=== PATIENT | male | born 1940 | race Caucasian/White ===

== ENCOUNTER → 2016-06-17 | Outpatient (CLI) | payer OTHER ==
[~2016-06-17] MED LIST: ACCUPRIL PO; ADULT LOW DOSE81 MG PO; AMBIEN 5 MG TABL5 M1 PO; AMLODIPINE BESY10 MG; AMLODIPINE BESYL5 MG PO; ANSAID100 MG PO; ASPIR 8181 MG PO; ASPIRIN325; ASPIRIN325 PO; B COMPLEX-VITA1 EACH PO; B-50 COMPLEX1 EAC1 PO; BYSTOLIC 5 MG5 M1 PO; BYSTOLIC10 MG PO; CALCIUM 500 +1 EAC6 PO; CALCIUM PO; CARDURA2 MG PO; FAMOTIDINE20 MG PO; FISH OIL 1,001000 M1 PO; FISH OIL 1,001000 M2 PO; FISHOIL PO; HYDROCODONE-AP1 EAC6 PO; HYZAAR 100-12.1 EACH PO; HYZAAR 50-12.51 EACH PO; HYZAAR 50-12.51 TAB PO; IRON325 PO; LIPITOR40 MG PO; LOSARTAN-HCTZ1 EAC2; MAGNESIUM OXID400 MG PO; MIRALAX17 G1 PO; MULTI-VITAMIN1 EAC5 PO; MULTIVITAMINS PO; NEXIUM40 MG PO; NITROGLYCERIN0.4 MG SUBLING; NORCO 10-325 T1 EACH PO; OMEPRAZOLE 20 M20 M1 PO; OMEPRAZOLE PO; PLAVIX 75 MG TA75 MG PO; STOOL SOFTENER100 M1 PO; TRIBENZOR 20-51 EACH; VIAGRA100 MG PO; VITCB500GO PO
== END ==
LOC: NUC 09:44
DX: I77.9 Disorder of arteries and arterioles, unspecified (principal); R55 Syncope and collapse; R07.89 Other chest pain

== ENCOUNTER 2017-01-05 08:41 | Observation (INO) | payer OTHER ==
[~2017-01-05] VITALS: Ht 175.3 cm; Wt 100.4 kg
--- NOTE | ~2017-01-05 | P ---
[facility] [place] [address] PROCEDURE REPORT Name: EYALDEMOND Angela Room #: 213-P [facility] Katherine Dias#: [id number] Admission: 01/05/17 Attend Phys: Brody Alonso MD Discharge: 01/06/17 Date of : 38 Report #: [id number] THIS REPORT FOR: //name// CC: Royal Alonso DATE OF SERVICE: 01/06/2017 EP study and pacemaker implantation. PREOPERATIVE DIAGNOSES: 1. Recurrent syncope. 2. Conduction disease on EKG. HISTORY OF PRESENT ILLNESS: The patient is a 76-year-old with a known history of coronary artery disease who has had recurrent syncopal episodes and is here for EP study with possible ICD, possible pacemaker, and possible loop recorder insertion. ANESTHESIA: The patient underwent MAC anesthesia with no anesthesia related complications. PROCEDURE: The patient underwent informed consent. We discussed the details of the procedure including the risks, which include, but not limited to bleeding, infection, vascular damage, cardiac perforation, and pneumothorax. He understood these risks and is willing to proceed. As such, he was brought to the EP laboratory in a fasting and sedated state and prepped and draped in a sterile fashion. Next, I injected lidocaine to the right femoral groin region, obtained access to the right femoral vein times 3, placing three 6-Burundian short sheaths using the modified Seldinger technique. Next, under fluoroscopy, I placed 3 quadripolar catheters at the [facility], HIS, and RV positions. A basic EP study was performed. At baseline, the patient was in sinus rhythm with a sinus cycle length of 850 milliseconds, WA interval 320 milliseconds, QRS duration 147 milliseconds with an intraventricular conduction delay and AH interval 250 milliseconds, and HV interval of 70 milliseconds. Next, atrial burst pacing was performed and AV block was noted at 800 milliseconds. When I would pace at below 600 milliseconds, there was evidence of complete heart block. Next, ventricular stimulation was performed with ventricular ERP noted at 380 milliseconds at [address] cycle length and ventricular ERP noted at 410 milliseconds at a [address] cycle length[address] Double ventricular extrastimuli were performed at several basic drive cycle lengths and there was no induction of VT or VF. As such, the patient was diagnosed with severe infra-Hisian conduction disease and was prepped for pacemaker implantation. [facility] [address] [place] [address] PROCEDURE REPORT Name: DEMOND BIRCH Room #: 213-P RAN Dias#: [id number] Admission: 01/05/17 Attend Phys: Brody Alonso MD Discharge: 01/06/17 Date of : 38 Report #: [id number] The patient received IV antibiotics prior to initiation of the procedure and was prepped and draped in a sterile fashion, I then performed a venography showing patency of the left axillary vein. Next, an incision was made and a pocket was created over the prepectoral fascia and access was obtained twice the left axillary vein using the extrathoracic approach with sheaths positioned using the modified Seldinger technique. Leads were positioned in the right ventricular apex and a lead was positioned to the right atrium. Of note, there was evidence of atrial disease and I had difficulty finding a good atrial sensing and atrial pacing threshold. I did have to put the lead in the more lateral position in order to attain decent numbers. Then, the leads were sutured to the prepectoral fascia using Ethibond suture, the pacemaker was connected, placed in the pocket, then the pocket was irrigated with vancomycin and then the pocket was closed in 3 layers and surgical glue was placed to the outer skin layer. There was no significant bleeding and there were no complications. The pacing wires had been removed prior to initiation of the pacemaker implant. The right femoral groin sheaths were then pulled and hemostasis was obtained, the patient awoke neurologically and hemodynamically intact. The implanted pacemaker was a [employer] model #[id number], serial #[id number]; the atrial lead was a [employer] model #2088TC, 52 cm, serial #[id number] with a P-wave of 1 millivolt, pacing impedance of 360 ohms and a pacing threshold 1 volt at 0.4 milliseconds; the RV lead was a [employer] model #2088TC, 58 cm, serial #[id number] with an R-wave of 6.1 millivolts, pacing impedance of 480 ohms, and the pacing threshold 0.5 volts at 0.4 milliseconds. The device was programmed to the DDDR 60-130 mode. CONCLUSIONS: 1. EP study with evidence of severe infra-Hisian disease. 2. Successful dual-chamber pacemaker implantation. 3. Satisfactory atrial and ventricular pacing and sensing thresholds. <ELECTRONICALLY SIGNED> By: Brody Alonso MD 01/17/17 1252 1024 [id number] Brody Alonso MD /nt
--- NOTE | ~2017-01-05 | CATHLAB ---
[facility] [address] [place] [address] INVASIVE PROCEDURE REPORT Name: DEMOND BIRCH Room #: 213-P [facility] IN M.R.#: [id number] Admission: 01/05/17 Attend Phys: Brody Alonso Discharge: 01/06/17 Date of : 38 Date of Service: Report #: [id number] THIS REPORT FOR: //name// By: Akshat: T: /INF
--- NOTE | ~2017-01-05 | D ---
[facility] [place] [address] DISCHARGE SUMMARY Name: EYALDEMOND Angela Room #: 213-P [facility] Katherine Dias#: [id number] Admission: 01/05/17 Attend Phys: Brody Alonso MD Discharge: 01/06/17 Date of : 38 Report #: [id number] THIS REPORT FOR: //name// CC: Royal Alonso DATE OF SERVICE: 01/06/2017 DISCHARGE DIAGNOSES: 1. Recurrent syncope. 2. Complete heart block. PROCEDURES PERFORMED: Pacemaker implantation. HISTORY OF PRESENT ILLNESS: The patient is a 76-year-old with a history of coronary artery disease who has recently had multiple recurrent syncopal episodes. His EF is 50-55%. He wore a recent cardiac surgeon, which showed a long first-degree AV block and some Mobitz I second degree heart block. He is here for EP study. On EP study, he was found to have infra-hisian conduction disease. As such, a [employer]ke[employer] dual-chamber pacemaker was implanted. The pacemaker implantation was uneventful other than for some atrial disease that made finding a good pacing threshold challenging. Eventually, I was able to place the atrial lead in a lateral position with adequate atrial signals and pacing thresholds. HOSPITAL COURSE: The patient was monitored overnight and did well without any complications. On telemetry, he was ventricularly paced. Device interrogation was performed and showed improvement in his atrial pacing threshold. Chest x-ray demonstrated normal device positioning with no pneumothorax. The patient was doing well without any complaints of chest pain, shortness of breath, fevers, or chills. His vitals were stable. His physical exam revealed normal heart with regular rate and rhythm. No murmurs, rubs, or gallops. No elevated jugular venous pressure. His lungs were clear bilaterally. His abdomen was soft, nontender, nondistended and his incision site was healing nicely with no signs of hematoma or bruising. As such, the patient was deemed stable for discharge home. Discharge instructions were reviewed and the patient will follow up in 7-10 days for a site check. Discharge medications include atorvastatin, resumption of his Bystolic, which had previously been stopped due to syncope, doxazosin, aspirin, docusate, hydrocodone, losartan/HCTZ, nitroglycerin, fish oil, Viagra, iron, and MiraLax. We also discussed that he [address] [address] DISCHARGE SUMMARY Name: EYALDEMOND Miller Room #: 213-P [facility] Katherine Dias#: [id number] Admission: 01/05/17 Attend Phys: Brody Alonso MD Discharge: 01/06/17 Date of : 38 Report #: [id number] will discontinue anticoagulation, as per my evaluation, there was no evidence of atrial fibrillation on his recent cardiac surgeon. <ELECTRONICALLY SIGNED> By: Brody Alonso MD 01/14/17 1046 1135 1300 Brody Alonso MD /jimena
[2017-01-05] MEDS ORDERED: XARELTO20 MG PO (09:00)
[2017-01-05 15:25] VITALS: BP 136/93
[2017-01-05 17:15] VITALS: BP 133/67
[2017-01-05 17:30] VITALS: BP 135/82
[2017-01-05 17:56] VITALS: BP 109/75
[2017-01-05 19:52] VITALS: BP 100/66
[2017-01-05 23:30] VITALS: BP 110/71
[2017-01-06 03:47] VITALS: BP 114/69
[2017-01-06 07:17] VITALS: BP 131/72
[2017-01-06 11:25] VITALS: BP 110/56
[2017-01-06 11:34] VITALS: BP 110/56
[2017-01-06 11:36] VITALS: BP 110/56
== END 2017-01-06 13:55 | disposition home or self-care (01) ==
LOC: CATH 08:41 → 2N 15:37
DX: I44.2 Atrioventricular block, complete (principal); I25.10 Atherosclerotic heart disease of native coronary artery without angina pectoris
CPT/HCPCS: 62110

== ENCOUNTER → 2017-01-31 | Outpatient (CLI) | payer OTHER ==
[~2017-01-31] MED LIST changes: +XARELTO20 MG PO
--- NOTE | ~2017-01-31 | 2DMMODE ---
[facility] [place] [address] 2 D/M-MODE ECHOCARDIOGRAM Name: DEMOND BIRCH [id number] Admission: 01/31/17 Attend Phys: Royal Santos, Discharge: Date of : 38 Date of Service: 01/31/17 1003 Report #: [id number] THIS REPORT FOR: //name// APPROVED REPORT Study performed: 01/31/2017 09:12:03 EXAM: Comprehensive 2D, Doppler, and color-flow Echocardiogram Patient Location: Echo lab Status: routine BSA: 2.07 BP: 140/90 mmHg Other Information Study Quality: Adequate Indications Pacemaker CAD Syncope 2D Dimensions RVDd: 45.42 mm LVEF(%): 48.50 (>50%) IVSd: 13.61 (7-11mm) LVOT Diam: 25.42 (18-24mm) LVDd: 47.38 mm PWd: 13.15 (7-11mm) Ascending Ao: 30.20 (22-36mm) LVDs: 35.80 (25-40mm) Aortic Root: 35.72 mm IVC: 19.00 mm Martini's LVEF: 48.50 % Volumes Left Atrial Volume (Systole) Single Plane 4CH: 85.80 mL Single Plane 2CH: 87.77 mL LA ESV Index: 48.00 mL/m2 Aortic Valve AoV Peak Jordan.: 1.60 m/s AO Peak Gr.: 10.28 mmHg LVOT Max P.19 mmHg LVOT Max V: 1.02 m/s TALI Vmax: 3.24 cm2 Mitral Valve E/A Ratio: 1.1 [facility] [place] [address] 2 D/M-MODE ECHOCARDIOGRAM Name: DEMOND BIRCH Room #: [facility]#: [id number] Admission: 01/31/17 Attend Phys: Royal Santos, Discharge: Date of : 38 Date of Service: 01/31/17 1003 Report #: [id number] MV Decel. Time: 179.05 ms MV E Max Jordan.: 0.67 m/s MV A Jordan.: 0.61 m/s MV PHT: 51.92 ms Pulmonary Valve PV Peak Jordan.: 1.27 m/s PV Peak Gr.: 6.44 mmHg Pulmonary Vein P Vein S: 0.71 m/s P Vein A: 0.21 m/s P Vein D: 0.48 m/s P Vein A Dur.: 173.0 msec P Vein S/D Ratio: 1.48 Tricuspid Valve TR Peak Jordan.: 2.98 m/s RAP Estimate: 5.00 mmHg TR Peak Gr.: 35.42 mmHg PA Pressure: 40.00 mmHg Left Ventricle The left ventricle is normal size. Mild to moderate concentric left ventricular hypertrophy. Left ventricular systolic function is mild to moderately decreased. Discordant distal septal and inferior wall motion probably from RV pacing. LVEF is 40%. Right Ventricle The right ventricle is normal size. Right ventricular systolic function appears grossly normal. Atria Left atrium is dilated. Right atrium is dilated. Aortic Valve The aortic valve is midly sclerotic, trileaflet No aortic regurgitation is present. There is no aortic valvular stenosis. Mitral Valve The mitral valve is normal in structure. Mild mitral regurgitation. No evidence of mitral valve stenosis. Tricuspid Valve The tricuspid valve is normal in structure. Moderate tricuspid regurgitation. PAP is estimated at 40 mmHg. Pulmonic Valve The pulmonary valve is normal in structure. Trace pulmonic [facility] [address] [place] [address] 2 D/M-MODE ECHOCARDIOGRAM Name: DEMOND BIRCH Room #: REG Larissa#: [id number] Admission: 01/31/17 Attend Phys: Royal Santos, Discharge: Date of : 38 Date of Service: 01/31/17 1003 Report #: [id number] regurgitation. Great Vessels The aortic root is normal in size. IVC is normal in size and collapses >50% with inspiration. Pericardium There is no pericardial effusion. <Conclusion> Left ventricular systolic function is mild to moderately decreased. Discordant distal septal and inferior wall motion probably from RV pacing. LVEF is 40%. Both atria are dilated. The aortic valve is midly sclerotic, trileaflet. No aortic regurgitation or stenosis The mitral valve is normal in structure. Mild mitral regurgitation. Pulmonary artery pressure of 40mmHg There is no pericardial effusion. <ELECTRONICALLY SIGNED> By: Jimbo Smith MD, FACC 01/31/17 1003 1003 1003 Jimbo Smith MD, FACC /INF
== END ==
LOC: CV 08:30
DX: I25.10 Atherosclerotic heart disease of native coronary artery without angina pectoris (principal); I48.91 Unspecified atrial fibrillation; I10 Essential (primary) hypertension; I35.8 Other nonrheumatic aortic valve disorders; I34.0 Nonrheumatic mitral (valve) insufficiency; R55 Syncope and collapse; Z95.0 Presence of cardiac pacemaker

== ENCOUNTER → 2018-02-17 | Outpatient (CLI) | payer OTHER ==
[~2018-02-17] VITALS: Ht 175.3 cm; Wt 95.3 kg
[~2018-02-17] MED LIST changes: +LASIX 40 MG TAB40 M2 PO; +NORVASC5 M1 PO; +PROTONIX40 M1 PO; +RESTORIL30 MG PO
[2018-02-17 11:05] VITALS: BP 142/87
[2018-02-17 11:17] LABS: HEMATOCRIT 40.8 % (42.0-52.0); MCHC 34.2 g/dL (28.0-37.0); MCV 96.3 fL (80.0-100.0); RBC 4.24 mil/uL (4.50-6.00); RDW 22.4 % (10.5-14.5); WBC 4.3 thou/uL (4.0-11.0)
[2018-02-17 11:23] LABS: CALCIUM 8.8 mg/dL (8.5-10.1); CREATININE 1.6 mg/dL (0.7-1.3); POTASSIUM 3.4 mmol/L (3.5-5.1)
[2018-02-17 11:30] LABS: ALBUMIN 3.7 g/dL (3.4-5.0); APTT 38.5 Seconds (24.5-32.8); INR 1.5; PROTIME 16.1 Seconds (9.3-11.4); TOTAL BILIRUBIN 0.8 mg/dL (<0.1-1.0); TOTAL PROTEIN 7.2 g/dL (6.4-8.2)
== END | disposition home or self-care (01) ==
LOC: CATH 09:19
PROVIDERS: Internal Medicine Cardiovascular Disease
DX: I48.91 Unspecified atrial fibrillation (principal); E78.00 Pure hypercholesterolemia, unspecified; K21.9 Gastro-esophageal reflux disease without esophagitis; Z79.899 Other long term (current) drug therapy; Z79.01 Long term (current) use of anticoagulants; Z88.8 Allergy status to other drugs, medicaments and biological substances; Z90.49 Acquired absence of other specified parts of digestive tract; Z95.5 Presence of coronary angioplasty implant and graft; Z98.890 Other specified postprocedural states; Z86.73 Personal history of transient ischemic attack (TIA), and cerebral infarction without residual deficits; Z82.49 Family history of ischemic heart disease and other diseases of the circulatory system; Z96.653 Presence of artificial knee joint, bilateral; Z95.1 Presence of aortocoronary bypass graft
CPT/HCPCS: 62110; 62900

== ENCOUNTER → 2018-09-14 | Outpatient (CLI) | payer OTHER ==
--- NOTE | 2018-09-14 15:07 | 2DMMODE ---
[facility] [place] [address] 2 D/M-MODE ECHOCARDIOGRAM Name: DEMOND BIRCH Room #: REG [facility]#: [id number] ������������� Admission: 09/14/18 ������������� Attend Phys: Brody Alonso Discharge: ��� ������������� ��� Date of : 38 Date of Service: 09/14/18 1507 �� Report #: [id number] �������� ��������������������������������������������[id number] THIS REPORT FOR: //name// APPROVED REPORT Study performed: 09/14/2018 13:44:34 EXAM: Comprehensive 2D, Doppler, and color-flow Echocardiogram Patient Location: Out-Patient, Echo Lab Status: routine BSA: 2.11 HR: 80 bpm BP: 124/82 mmHg Rhythm: Atrial Fibrillation Other Information Study Quality: Good Indications Atrial Fibrillation Pacemaker CAD 2D Dimensions IVSd: 11.31 (7-11mm) LVOT Diam: 23.00 (18-24mm) LVDd: 54.84 mm PWd: 10.86 (7-11mm) Ascending Ao: 37.11 (22-36mm) LVDs: 50.27 (25-40mm) Aortic Root: 33.45 mm LV Single Plane 4CH: 24.97 % LV Single Plane 2CH: 27.22 % Biplane EF: 25.2 % Volumes Left Atrial Volume (Systole) Single Plane 4CH: 115.04 mL Single Plane 2CH: 130.27 mL LA ESV Index: 62.00 mL/m2 Aortic Valve AoV Peak Jordan.: 1.11 m/s AO Peak Gr.: 5.32 mmHg LVOT Max P.76 mmHg LVOT Max V: 0.66 m/s TALI Vmax: 2.42 cm2 [facility] [address] [place] [address] 2 D/M-MODE ECHOCARDIOGRAM Name: DEMOND BIRCH Room #: REG [facility]#: [id number] ������������� Admission: 09/14/18 ������������� Attend Phys: [facility]dy [facility] Discharge: ��� ������������� ��� Date of : 38 Date of Service: 09/14/18 1507 �� Report #: [id number] �������� ��������������������������������������������[id number] Pulmonary Valve PV Peak Jordan.: 0.89 m/s PV Peak Gr.: 3.20 mmHg UT End Vmax: 1.90 m/s Tricuspid Valve TR Peak Jordan.: 3.22 m/s RAP Estimate: 15.00 mmHg TR Peak Gr.: 41.42 mmHg PA Pressure: 56.00 mmHg Left Ventricle The left ventricle is normal size. Borderline concentric left ventricular hypertrophy. Left ventricular systolic function is severely decreased. LVEF is 25-30%. This study is not technically sufficient to allow evaluation of the LV diastolic function due to atrial fibrillation. Right Ventricle Right ventricle is borderline dilated. The right ventricular systolic function is normal. Pacemaker lead is present in the right ventricle. Atria Left atrium is severely dilated. Right atrium is severely dilated. Aortic Valve The aortic valve is normal in structure. No aortic regurgitation is present. There is no aortic valvular stenosis. Mitral Valve The mitral valve is normal in structure. Moderate to severe mitral regurgitation No evidence of mitral valve stenosis. Tricuspid Valve The tricuspid valve is normal in structure. Moderate to severe tricuspid regurgitation. Pulmonary artery pressure is 56 mmHg. Pulmonic Valve The pulmonary valve is normal in structure. Mild pulmonic regurgitation. Great Vessels The aortic root is normal in size. The ascending aorta is normal in size. IVC is dilated and collapses <50% with inspiration. [facility] [place] [address] 2 D/M-MODE ECHOCARDIOGRAM Name: DEMOND BIRCH Room #: REG [facility]#: [id number] ������������� Admission: 09/14/18 ������������� Attend Phys: Brody Alonso Discharge: ��� ������������� ��� Date of : 38 Date of Service: 09/14/18 1507 �� Report #: [id number] �������� ��������������������������������������������[id number] Pericardium There is no pericardial effusion. <Conclusion> The left ventricle is normal size. Left ventricular systolic function is severely decreased. Right ventricle is borderline dilated. Pacemaker lead is present in the right ventricle. Left atrium is severely dilated. Right atrium is severely dilated. The aortic valve is normal in structure. Moderate to severe mitral regurgitation Moderate to severe tricuspid regurgitation. Pulmonary artery pressure is 56 mmHg. ��������������������������������������������� <ELECTRONICALLY SIGNED> ���������������������������������������� By: Hansel Maguire MD ��������������������������������������������� 09/14/18 1507 D: [id number] 150 Hansel Maguire MD /JON
== END ==
LOC: CV 10:09
DX: I08.8 Other rheumatic multiple valve diseases (principal); I48.91 Unspecified atrial fibrillation; I25.10 Atherosclerotic heart disease of native coronary artery without angina pectoris; Z95.0 Presence of cardiac pacemaker; Z88.6 Allergy status to analgesic agent

== ENCOUNTER 2018-10-06 06:29 | Observation (INO) | payer OTHER ==
[~2018-10-06] VITALS: Ht 175.3 cm; Wt 96.2 kg
--- NOTE | ~2018-10-06 | P ---
[facility] [place] [address] PROCEDURE REPORT Name: EYALDEMOND Angela Room #: 206-P [facility]..#: [id number] Admission: 10/06/18 Attend Phys: Brody Alonso MD Discharge: Date of : 38 Report #: [id number] THIS REPORT FOR: //name// CC: Royal Alonso DATE OF SERVICE: 10/06/2018 PREOPERATIVE DIAGNOSES: 1. Nonischemic cardiomyopathy. 2. [place] [employer] functional class 2-3 heart failure symptoms. 3. Chronic right ventricular pacing. 4. Permanent atrial fibrillation. PROCEDURES PERFORMED: 1. Peripheral venogram. 2. Removal of pulse generator. 3. Placement of LV lead. 4. Insertion of a dual chamber ICD. HISTORY: The patient has a history of a nonischemic cardiomyopathy, likely due to chronic right ventricular pacing, who has been on optimal medical therapy and is here for upgrade to a biventricular ICD. ANESTHESIA: The patient underwent MAC anesthesia with no anesthesia related complications. DESCRIPTION OF PROCEDURE: The patient underwent informed consent. We discussed the details of the procedure including the risks, which include but not limited to bleeding, infection, vascular damage, cardiac perforation, pneumothorax. He understood these risks and is willing to proceed. The patient was brought to the EP laboratory in a fasting and sedated state and prepped and draped in a sterile fashion. He received IV antibiotics. A peripheral venogram was performed to ensure patency of the left axillary vein given prior pacemaker implantation. This showed that the vessel was patent. Next, lidocaine was injected at the prior incision site. Incision was made, the chronic pocket was opened and the pocket was enlarged for the anticipated ICD. Next, I obtained access to the left axillary vein x 2 using the extrathoracic approach with sheaths positioned using the modified Seldinger technique. Next, a lead was positioned into the right ventricular apex with adequate pacing and sensing thresholds and this lead was sutured to the prepectoral fascia. Next, a coronary sinus guide sheath was placed into the right atrium and access to the coronary sinus was obtained and a coronary sinus venogram was performed showing that there was a nice posterolateral branch. A quadripolar lead was easily [facility] [address] [place] [address] PROCEDURE REPORT Name: DEMOND BIRCH Room #: 206-P [facility].R.#: [id number] Admission: 10/06/18 Attend Phys: Brody Alonso MD Discharge: Date of : 38 Report #: [id number] delivered into this vessel and there was good pacing thresholds. There was a phrenic nerve stimulation at higher outputs, but no diaphragmatic capture at less than 4 volts. The sheath was split and the lead remained in position and this LV lead was sutured to the prepectoral fascia. Next, the chronic RV lead was capped. The preexisting atrial lead and then 2 new leads were connected to the new biventricular ICD, which was placed in the pocket. Pocket was irrigated with vancomycin and then the pocket was closed in 2 layers using 2-0 for the deep layer, 3-0 for the middle layer and surgical glue was placed to the outer skin layer. The patient awoke neurologically and hemodynamically intact. No complications and no significant bleeding. The explanted pacemaker was a [employer], model #[id number], serial #[id number]. The capped RV lead was a [employer], model #2088, 58 cm, serial #[id number]. The newly implanted device was a [employer], model #047333J, serial #[id number]. The atrial lead was a [employer], model #2088TC, 52 cm, serial #[id number], which was implanted in 2015 at the time of initial pacemaker implantation. The newly implanted ICD lead was a [employer], model #7122Q, 65 cm, serial #[id number]. The LV lead was a [employer] model #1458, 86 cm, serial #[id number]. The atrial lead demonstrates permanent atrial fibrillation. The RV lead demonstrated a R-wave of 15, threshold 0.5 volts at 0.5 milliseconds with pacing impedance of 430 ohms. The LV lead demonstrated a threshold of 1.25 volts at 0.5 milliseconds in the M3-P4 configuration with a pacing impedance of 600 ohms. The LV lead was programmed to pace 30 milliseconds prior to the RV lead and this resulted in a QRS duration of 155 milliseconds. The original QRS duration from chronic RV pacing was over 200 milliseconds. The device was programmed to the VVIR 70-130 mode. The VT zone was set at 180-220 beats per minute with 3 rounds of bursts followed by 3 rounds of ramp followed by max output shocks. The VF zone was set at greater than 222 beats per minute with ATP while charging followed by max output shocks. CONCLUSIONS: 1. Successful upgrade to a biventricular ICD. 2. Satisfactory right ventricular and left ventricular pacing and sensing thresholds. By: 1028 07 Brody Alonso MD /nt
[2018-10-06 07:07] LABS: ABSOLUTE NEUTROPHILS 4.2 thou/uL (1.4-8.2); BASOPHILS 0.7 % (0.0-2.0); EOSINOPHILS 2.1 % (0.0-3.0); HEMATOCRIT 41.2 % (42.0-52.0); HEMOGLOBIN 14.2 gm/dL (14.0-18.0); LYMPHOCYTES 9.9 % (24.0-44.0); MCH 37.3 pg (26.0-34.0); MCHC 34.5 g/dL (28.0-37.0); MONOCYTES 11.5 % (1.0-8.0); PLATELET COUNT 149 thou/uL (150-400); POLYS 75.8 % (36.0-66.0); RBC 3.82 mil/uL (4.50-6.00); RDW 16.1 % (10.5-14.5); WBC 5.5 thou/uL (4.0-11.0)
[2018-10-06 07:16] LABS: CALCIUM 9.2 mg/dL (8.5-10.1); CREATININE 1.6 mg/dL (0.7-1.3); POTASSIUM 3.4 mmol/L (3.5-5.1)
[2018-10-06 07:21] VITALS: BP 150/98
[2018-10-06 07:22] LABS: ALBUMIN 3.6 g/dL (3.4-5.0); APTT 27.8 Seconds (24.5-32.8); INR 1.3; PROTIME 13.1 Seconds (9.3-11.4); TOTAL BILIRUBIN 1.3 mg/dL (<0.1-1.0); TOTAL PROTEIN 6.9 g/dL (6.4-8.2)
[2018-10-06 07:35] LABS: ANISOCYTOSIS 1+; LARGE PLATELETS OCCASIONAL; MACROCYTES 2+; PLATELET ESTIMATE SLIGHTLY DECREASED; POLYCHROMASIA SLIGHT
[2018-10-06] MEDS ORDERED: XARELTO20 MG PO (10:09)
[2018-10-06 12:45] VITALS: BP 145/86
[2018-10-06 15:34] VITALS: BP 140/91
--- NOTE | 2018-10-06 16:29 | NUR ---
PT TO THE UNIT POST PACER AND AICD PLACMENT. PT ORINETED TO ROOM AND BEDSAPCE. INCISION TO L CHEST C/D/I. DERMABOND PRESENT - IMMOBILIZER INISITU. SARAN DIET AND FLUIDS. NO CO'S OF PAIN OR NAUSEA. PT WITH DIFFICULTY URINATIN - STATES HE ALWAYS HAS PROBLEMS STARTING HIS STREAM. UNABLE TO VOID IN THE BED OR AT BEDSIDE, TAKEN TO THE BATHROOM AND VOIDED A VERY SMALL AMOUNT. DAUGHTER AT THE BEDSIDE FOR MOST OF THE DAY. PT WITH NO CO'S AT THE PRESENT TIME.
[2018-10-06 19:26] VITALS: BP 159/95
[2018-10-07 00:20] VITALS: BP 153/90
[2018-10-07 05:20] VITALS: BP 151/83
--- NOTE | 2018-10-07 06:03 | NUR ---
ASSUME CARE 1900. PT/VITALS STABLE. INTERMITTENT INCISIONAL PAIN. BEDREST UNTILL PACEMAKER PLACEMENT CHECKED. ADEQUATE REST NOTED. PROGRESSING WITH POC. PLAN IS POSSIBLE DISCHARGE TODAY. ARM IN IMMOBILIZER. SITE WELL APPROXIMATED/CDI. WILL CONTINUE TO FOLLOW WIHT MONITOR POC
[2018-10-07 08:46] VITALS: BP 157/93
[2018-10-07 09:42] VITALS: BP 157/93
[2018-10-07 10:02] VITALS: BP 157/93
--- NOTE | 2018-10-07 10:43 | NUR ---
PT DISCHARGE INSTRUCTIONS REVIEWED, QUESTIONS ANSWERED. PIV X2 DISCONTINUED. PT DENIES ANY FURTHER QUESTIONS. PT WILL DISCHARGE WITH DAUGHTER.
--- NOTE | 2018-10-07 11:06 | NUR ---
PT DISCHARGED VIA WC ACCOMPANIED BY DAUGHTER AND MECHANIC SENIOR.
== END 2018-10-07 11:08 | disposition home or self-care (01) ==
LOC: CATH 06:29 → 2N 11:45
PROVIDERS: ADMIT Internal Medicine Cardiovascular Disease
DX: I42.9 Cardiomyopathy, unspecified (principal); I48.91 Unspecified atrial fibrillation; I11.0 Hypertensive heart disease with heart failure; I50.9 Heart failure, unspecified; Z79.82 Long term (current) use of aspirin; Z79.899 Other long term (current) drug therapy

== ENCOUNTER → 2019-03-23 | Outpatient (CLI) | payer OTHER ==
--- NOTE | 2019-03-23 10:16 | 2DMMODE ---
[facility] [place] [address] 2 D/M-MODE ECHOCARDIOGRAM Name: DEMOND BIRCH Room #: REG CL [facility]#: [id number] Admission: 03/23/19 Attend Phys: Brody Alonso Discharge: Date of : 38 Report #: [id number] THIS REPORT FOR: //name// APPROVED REPORT Study performed: 03/23/2019 08:56:24 EXAM: Comprehensive 2D, Doppler, and color-flow Echocardiogram Patient Location: Out-Patient Status: routine BSA: 2.13 HR: 70 bpm BP: 122/82 mmHg Rhythm: Pacemaker Other Information Study Quality: Adequate Indications ICD: CAD Hypertension/HDD 2D Dimensions RVDd: 47.81 mm IVSd: 12.84 (7-11mm) LVOT Diam: 23.10 (18-24mm) LVDd: 45.12 mm PWd: 14.40 (7-11mm) Ascending Ao: 36.70 (22-36mm) LVDs: 36.45 (25-40mm) Aortic Root: 33.35 mm IVC: 15.00 mm Volumes Left Atrial Volume (Systole) Single Plane 4CH: 100.63 mL Single Plane 2CH: 121.93 mL LA ESV Index: 59.00 mL/m2 Aortic Valve AoV Peak Jordan.: 0.93 m/s AO Peak Gr.: 3.44 mmHg LVOT Max P.42 mmHg LVOT Max V: 0.60 m/s TALI Vmax: 2.69 cm2 Mitral Valve E/A Ratio: 1.4 [facility] [address] [place] [address] 2 D/M-MODE ECHOCARDIOGRAM Name: DEMOND BIRCH Room #: REG [facility]#: [id number] Admission: 03/23/19 Attend Phys: [facility]: Date of : 38 Report #: [id number] MV Decel. Time: 170.92 ms MV E Max Jordan.: 0.78 m/s MV A Jordan.: 0.57 m/s MV PHT: 49.57 ms IVRT: 156.86 ms Pulmonary Valve PV Peak Jordan.: 0.77 m/s PV Peak Gr.: 2.37 mmHg Tricuspid Valve TR Peak Jordan.: 2.52 m/s TR Peak Gr.: 25.33 mmHg PA Pressure: 30.00 mmHg Left Ventricle The left ventricle is normal size. There is normal LV segmental wall motion. Mild concentric left ventricular hypertrophy. Left ventricular ejection fraction is mildly decreased. LVEF is 45%. This study is not technically sufficient to allow evaluation of the LV diastolic function. Right Ventricle The right ventricle is normal size. The right ventricular systolic function is normal. Device lead is present in the right ventricle. Atria Left atrium is dilated. Right atrium is dilated. Device lead is present in the right atrium. Aortic Valve The aortic valve is sclerotic. No aortic regurgitation is present. There is no aortic valvular stenosis. Mitral Valve The mitral valve is normal in structure. Mild mitral regurgitation. No evidence of mitral valve stenosis. Tricuspid Valve The tricuspid valve is normal in structure. There is mild tricuspid regurgitation. Estimated PAP 30 mmHg. There is mild pulmonary hypertension. Pulmonic Valve The pulmonary valve is normal in structure. Trace pulmonic regurgitation. [facility] [place] [address] 2 D/M-MODE ECHOCARDIOGRAM Name: EYALDEMOND Angela Room #: REG [facility]#: [id number] Admission: 03/23/19 Attend Phys: Brody Alonso Discharge: Date of : 38 Report #: [id number] Great Vessels The aortic root is normal in size. IVC is normal in size and collapses >50% with inspiration. Pericardium There is no pericardial effusion. <Conclusion> Left ventricular ejection fraction is mildly decreased. LVEF is 45%. Both atria are dilated. Pacing wires are in the right heart. The aortic valve is sclerotic. No aortic regurgitation or stenosis. The mitral valve is normal in structure. Mild mitral regurgitation. There is mild tricuspid regurgitation. Estimated pulmonary artery pressure of 30 mmHg. There is no pericardial effusion. Significant improvement in left ventricular function compared to the study dated August 2018 <ELECTRONICALLY SIGNED> By: Jimbo Smith MD, [facility] 03/23/19 [phone] [id number] Jimbo Smith MD, [facility] /INF
== END ==
LOC: CV 08:37
DX: I08.1 Rheumatic disorders of both mitral and tricuspid valves (principal); I27.20 Pulmonary hypertension, unspecified; I25.10 Atherosclerotic heart disease of native coronary artery without angina pectoris; I48.91 Unspecified atrial fibrillation; I42.8 Other cardiomyopathies

== ENCOUNTER → 2019-03-26 | Outpatient (CLI) | payer OTHER | LOC: SJCVC 14:42 | DX: Z45.02 Encounter for adjustment and management of automatic implantable cardiac defibrillator (principal); R94.31 Abnormal electrocardiogram [ECG] [EKG]; I48.91 Unspecified atrial fibrillation; I48.92 Unspecified atrial flutter; I25.10 Atherosclerotic heart disease of native coronary artery without angina pectoris; I70.1 Atherosclerosis of renal artery; I11.0 Hypertensive heart disease with heart failure; I50.22 Chronic systolic (congestive) heart failure; I73.9 Peripheral vascular disease, unspecified; I25.810 Atherosclerosis of coronary artery bypass graft(s) without angina pectoris; I42.9 Cardiomyopathy, unspecified; I71.4 Abdominal aortic aneurysm, without rupture; E78.00 Pure hypercholesterolemia, unspecified; Z95.1 Presence of aortocoronary bypass graft; Z79.82 Long term (current) use of aspirin; Z95.810 Presence of automatic (implantable) cardiac defibrillator; Z79.899 Other long term (current) drug therapy; Z87.891 Personal history of nicotine dependence ==

== ENCOUNTER → 2019-12-24 | Outpatient (CLI) | payer OTHER | LOC: SJCVCIMAG 05-21 15:13 | PROVIDERS: ATTEND Internal Medicine Cardiovascular Disease | DX: I25.10 Atherosclerotic heart disease of native coronary artery without angina pectoris (principal); I49.3 Ventricular premature depolarization; I10 Essential (primary) hypertension; E78.00 Pure hypercholesterolemia, unspecified; I48.91 Unspecified atrial fibrillation; I25.5 Ischemic cardiomyopathy; I73.9 Peripheral vascular disease, unspecified; I70.1 Atherosclerosis of renal artery; I71.4 Abdominal aortic aneurysm, without rupture; Z95.1 Presence of aortocoronary bypass graft; Z95.810 Presence of automatic (implantable) cardiac defibrillator; Z79.899 Other long term (current) drug therapy; Z87.891 Personal history of nicotine dependence ==